=== PATIENT | male | born 1960 ===

== ENCOUNTER 2018-11-17 10:32 | Outpatient (REF) | payer BC, SELFPAY | END 2018-11-17 10:52 | LOC: LBN 10:32 | PROVIDERS: PCP Nurse Practitioner Family; Visit Provider Nurse Practitioner Family | DX: R35.0 Frequency of micturition (principal) | CPT/HCPCS: 87077; 87086; 87186 ==

== ENCOUNTER 2018-11-30 13:27 | Outpatient (REF) | payer BC, SELFPAY ==
[2018-11-30 16:38] LABS: Bilirubin Negative (Negative); Blood Trace-intact (Negative); Clarity Clear; Glucose Negative (Negative); Ketones Negative (Negative); Leukocyte Esterase Negative (Negative); Nitrite Negative (Negative); Specific Gravity 1.025 (1.005-1.025); Urobilinogen 0.2 EU/dL (Up TO 0.2); pH 5.5 (5-8)
[2018-11-30 16:56] LABS: Bacteria Negative HPF (Negative); C & S Indicated? C&S Done As Ordered; Casts Negative LPF (Negative); Crystals Negative HPF (Negative); Epithelial Cells Negative HPF (Negative); Mucus Negative (Negative); WBC 0-2 HPF (0-5)
== END 2018-11-30 13:47 ==
LOC: LBN 13:27
PROVIDERS: PCP Nurse Practitioner Family; Visit Provider Nurse Practitioner Family
DX: N39.0 Urinary tract infection, site not specified (principal); N40.0 Benign prostatic hyperplasia without lower urinary tract symptoms
CPT/HCPCS: 87077; 81003; 81015; 87086; 87186

== ENCOUNTER 2019-01-15 07:05 | Outpatient (CLI) | payer BC, SELFPAY ==
[2019-01-15 08:16] LABS: Anion Gap 9.7 mmol/L (3-11); BUN 22 mg/dL (7-18); CO2 29.3 mmol/L (21.0-32.0); CREATININE 0.94 mg/dL (0.70-1.30); Calcium 8.8 mg/dL (8.5-10.1); Calculated LDL 143 mg/dL; Chloride 105 mmol/L (98-107); Cholesterol 222 mg/dL (50-200); Glucose 103 mg/dL (70-100); HDL Cholesterol 63 mg/dL (40-60); Potassium 4.4 mmol/L (3.5-5.1); Sodium 144 mmol/L (136-145); Triglyceride 82 mg/dL (30-150)
[2019-01-16 11:09] LABS: PSA, Screening 0.9 ng/ml (0-4.5)
== END 2019-01-15 07:25 ==
PROVIDERS: PCP Nurse Practitioner Family; Visit Provider Nurse Practitioner Family
DX: E78.5 Hyperlipidemia, unspecified (principal); N40.0 Benign prostatic hyperplasia without lower urinary tract symptoms; R34 Anuria and oliguria; Z13.1 Encounter for screening for diabetes mellitus; Z12.5 Encounter for screening for malignant neoplasm of prostate
CPT/HCPCS: 36415; 80048; 80061; 83721; 84153

== ENCOUNTER 2019-02-27 15:13 | Outpatient (REF) | payer BC, SELFPAY ==
[2019-02-27 15:16] LABS: Bilirubin Negative (Negative); Blood Negative (Negative); Clarity Clear (Clear); Glucose Negative (Negative); Ketones Negative (Negative); Leukocyte Esterase Negative (Negative); Nitrite Negative (Negative); Specific Gravity 1.015 (1.005-1.025); Urobilinogen 0.2 EU/dL (Up TO 0.2)
== END 2019-02-27 15:33 ==
LOC: LBN 15:13
PROVIDERS: PCP Nurse Practitioner Family; Visit Provider Nurse Practitioner Gerontology
DX: R31.29 Other microscopic hematuria (principal)
CPT/HCPCS: 81003

== ENCOUNTER 2020-06-02 19:22 | Outpatient (REF) | payer BC, SELFPAY ==
[2020-06-02 15:41] LABS: Bilirubin Negative (Negative); Blood Trace-lysed (Negative); Clarity Clear (Clear); Glucose Negative (Negative); Ketones Negative (Negative); Leukocyte Esterase Negative (Negative); Nitrite Negative (Negative); Specific Gravity 1.015 (1.005-1.025); Urobilinogen 0.2 EU/dL (Up TO 0.2)
[2020-06-02 15:47] LABS: Bacteria Negative HPF (Negative); Casts Negative LPF (Negative); Crystals Negative HPF (Negative); Epithelial Cells Rare HPF (Negative); Mucus Negative (Negative); RBC 0-2 HPF (0-2); WBC 0-2 HPF (0-5)
[2020-06-02 15:48] LABS: C & S Indicated? No
== END 2020-06-02 19:42 ==
LOC: NCHCN 19:22
PROVIDERS: PCP Nurse Practitioner Family; Visit Provider Nurse Practitioner Gerontology
DX: R31.29 Other microscopic hematuria (principal)
CPT/HCPCS: 81003; 81015

== ENCOUNTER 2021-04-09 02:39 | Outpatient (CLI) | payer BC, SELFPAY ==
[2021-04-09 08:55] LABS: ALT 36 U/L (16-63); AST 22 U/L (15-37); Albumin 4.1 g/dL (3.4-5.0); Alkaline Phosphatase 52 U/L (46-116); Anion Gap 8.1 mmol/L (3-11); BUN 21 mg/dL (7-18); Bilirubin, Total 1.1 mg/dL (0.2-1.0); CO2 29.9 mmol/L (21.0-32.0); CREATININE 1.1 mg/dL (0.70-1.30); Calcium 9.1 mg/dL (8.5-10.1); Chloride 105 mmol/L (98-107); Glucose 96 mg/dL (74-106); Hemoglobin A1C 5.3 % (<5.7); Potassium 4.3 mmol/L (3.5-5.1); Sodium 143 mmol/L (136-145); Total Protein 6.8 g/dL (6.4-8.2)
[2021-04-09 18:08] LABS: Bilirubin, Direct 0.2 mg/dL (0.0-0.2)
[2021-04-10 10:53] LABS: Hepatitis C Ab w Rflx HCV PCR Negative (Negative)
[2021-04-14 17:01] LABS: Cholesterol 186 mg/dL (<200); HDL Cholesterol 63 mg/dL (40-60); Triglyceride 61 mg/dL (<150)
[2021-04-14 17:02] LABS: Calculated LDL 111 mg/dL (<100)
== END 2021-04-09 02:40 | disposition home or self-care (01) ==
PROVIDERS: PCP Nurse Practitioner Family; Visit Provider Nurse Practitioner Family
DX: R73.01 Impaired fasting glucose (principal); I10 Essential (primary) hypertension; E80.6 Other disorders of bilirubin metabolism; Z11.59 Encounter for screening for other viral diseases
CPT/HCPCS: 36415; 80053; 80061; 86803; 82248; 83036

== ENCOUNTER 2022-02-09 16:28 | Outpatient (REF) | payer BC, SELFPAY | END 2022-02-09 16:29 | disposition home or self-care (01) | LOC: LBN 16:28 | PROVIDERS: PCP Nurse Practitioner Gerontology; Visit Provider Nurse Practitioner Gerontology | DX: R31.9 Hematuria, unspecified (principal) | CPT/HCPCS: 87086 ==

== ENCOUNTER 2022-04-14 18:44 | Outpatient (REF) | payer BC, SELFPAY | END 2022-04-14 18:45 | disposition home or self-care (01) | LOC: LBN 18:44 | PROVIDERS: PCP Nurse Practitioner Family; Visit Provider Nurse Practitioner Gerontology | DX: N39.0 Urinary tract infection, site not specified (principal) | CPT/HCPCS: 87086 ==

== ENCOUNTER 2022-06-09 10:58 | Outpatient (REF) | payer BC, SELFPAY ==
[2022-06-09 11:18] LABS: Bilirubin Negative (Negative); Blood Trace-intact (Negative); Clarity Clear (Clear); Glucose Negative (Negative); Ketones Negative (Negative); Leukocyte Esterase Negative (Negative); Nitrite Negative (Negative); Specific Gravity 1.025 (1.005-1.025); Urobilinogen 0.2 EU/dL (Up TO 0.2)
[2022-06-09 11:36] LABS: Bacteria Negative HPF (Negative); C & S Indicated? No; Casts Negative LPF (Negative); Crystals Negative HPF (Negative); Epithelial Cells Rare HPF (Negative); Mucus Negative (Negative); WBC Negative HPF (0-5)
== END 2022-06-09 10:59 | disposition home or self-care (01) ==
LOC: LBN 10:58
PROVIDERS: PCP Nurse Practitioner Family; Visit Provider Nurse Practitioner Gerontology
DX: R31.29 Other microscopic hematuria (principal)
CPT/HCPCS: 81003; 81015

== ENCOUNTER 2022-07-08 06:13 | Day surgery (SDC) | payer BC, SELFPAY ==
[2022-07-08 06:36] VITALS: BP 129/77; PULSE 72; RESP 16; TEMP 37; O2SAT 98
--- NOTE | 2022-07-08 06:55 | W.ANESPRE ---
General Info Date of Service Date Performed: 07/08/22 Height: 5 ft 9 in Weight: 89 kg Body Mass Index (BMI): 29.0 Surgical Procedure: Operation Date: 07/08/22 07:40 Proposed Procedure Side Surgeon p Cysto/Retrograde/Possible Transurethral Resection Bladder Tumor Bilateral Enzo Newby MD Meds Allergies and Home Medications Allergies Allergy/AdvReac Type Severity Reaction Status Date / Time No Known Allergies Allergy Verified 07/08/22 06:36 Home Medication Medication Instructions Recorded atorvastatin 10 mg tablet 10 mg PO DAILY #90 tab-caps 08/26/21 lisinopril 20 mg tablet 20 mg PO DAILY #90 tab-caps 08/26/21 Current Visit Medications: Current Medications Generic Name Dose Route Start Last Admin Trade Name Freq PRN Reason Stop Dose Admin Ringer's Solution 1,000 mls @ 80 mls/hr 07/08/22 06:00 IV 08/06/22 23:59 INFUSION JAYE Cefazolin Sodium/Dextrose 2 gm in 50 mls @ 100 mls/hr 07/08/22 06:00 Ancef Duplex IVPB 07/08/22 16:00 PREOP JAYE IV Miscellaneous Supplies 1 each 07/08/22 06:00 Iv Access IV 08/06/22 23:59 DIRECTED JAYE Sodium Chloride 0 ml 07/08/22 06:00 Normal Saline Flush 10 Ml Syr IV 08/06/22 23:59 PRN PRN Sodium Chloride 0 ml 07/08/22 06:00 Normal Saline 10 Ml Vial IJ 08/06/22 23:59 DIRECTED PRN Sterile Water 0 ml 07/08/22 06:00 Water,Injection,Sterile 10 Ml Vial IJ 08/06/22 23:59 DIRECTED PRN PFSH Active Problems Active Problems: Problem Status Onset Code Incomplete bladder emptying R33.9 Immunization not carried out because of patient decision Z28.20 Alcohol consumption heavy Z78.9 BPH loc w urin obs/LUTS N40.1 IFG (impaired fasting glucose) ~12/2018 R73.01 Essential hypertension I10 Hyperlipidemia 08/18/15 E78.5 Medical History Medical History Tobacco use disorder QUIT ~1988 Tobacco Smoking/Tobacco Use Status: Former Tobacco Use Alcohol Alcohol Intake: current Alcohol intake frequency: 3 or more drinks per day Alcohol type: beer Counseling provided: provider counseling Details: 4-6 per day Substance Use Substance use: Never Substance use type: does not use Vital Signs and Lab Results Vital Signs Most Recent Vital Signs in EMR: Most Recent Vital Signs Temp Pulse Resp BP Pulse Ox 37 C 72 16 129/77 98 07/08/22 06:36 07/08/22 06:36 07/08/22 06:36 07/08/22 06:36 07/08/22 06:36 Lab Results Blood Type / Crossmatch: No Data to Display Complete Blood Count: No Data to Display Complete Metabolic Panel: No Data to Display Liver Function Panel: No Data to Display Coagulation Panel: No Data to Display Cardiac Panel: No Data to Display Arterial Blood Gas: No Data to Display Venous Blood Gas: No Data to Display Pancreas Panel: No Data to Display Thyroid Panel: No Data to Display Infectious Disease: No Data to Display Blood Cultures: No Data to Display Toxicology Panel: No Data to Display Anesthesia Assessment and Plan Anesthesia History Personal History: No History of General Anesthesia Family History: No Family History of Anesthesia Complications Exercise Tolerance Exercise Tolerance: Metabolic Equivalents>4 Pertinent Negatives Pertinent Negatives: No Symptoms of GERD Cardiac & Pulmonary Exam Cardiac Exam: Normal S1/S2 Heart Sounds Pulmonary Exam: Clear Bilateral Breath Sounds Implantable Cardiac Device Does patient have a Pacemaker or an ICD?: No Airway Exam Known Difficult Airway: No Mallampati Class: 3 Mouth Opening: Normal (> 3cm) Thyromental Distance: Greater than 3 cm Neck Range of Motion: Full ROM Neck Circumference: Normal Teeth Condition: Normal Dentition ASA Classification ASA Score: ASA 2 Emergency Case?: No NPO Status NPO Status: NPO Clears >2 hours, Solids >8 hours Anesthesia Plan Resuscitation Status: Full Code Anesthesia Technique: MAC Anesthesia Airway Planned: Natural Airway Monitors Used: Standard Monitors
[2022-07-08] MEDS: Lactated Ringers 1,000 ML 80 ML IV (07:00)
--- NOTE | 2022-07-08 07:00 | W.PM.HP.N ---
Date of service: 07/08/22 Time of Service: 07:00 Assessment and Plan Assessment and plan (1) Microscopic hematuria: Status: Acute Assessment and plan: We will plan to complete his hematuria work-up with a cystoscopy and retrograde pyelogram. We will be prepared to do a transurethral resection of bladder tumor should any abnormality be identified. History of Present Illness History of Present Illness Chief Complaint: Microscopic hematuria Narrative: This is a 62-year-old gentleman who has a history of lower urinary tract symptoms. He has been treated with medical therapy. As part of his evaluation, he was found to have microscopic hematuria. He has not had any gross hematuria. His evaluation to date includes a normal renal ultrasound. He presents for cystoscopy with bilateral retrograde pyelogram to complete his hematuria work-up. Review of Systems Constitutional Comments: No fevers or chills No vision change or dysphasia No diabetes or thyroid dysfunction No shortness of breath, cough or hemoptysis No chest pain or palpitations No nausea, vomiting, hepatitis, ulcers, jaundice, diarrhea or constipation No seizures, strokes or peripheral neuropathy No bleeding disorders or anemia No gout PFSH All Active Problems (Updated 07/08/22 @ 07:04 by Enzo Newby MD) Microscopic hematuria (Acute) Incomplete bladder emptying (Acute) Immunization not carried out because of patient decision (Acute) Patient declines all vaccinations except for Tdap Alcohol consumption heavy (Chronic) BPH loc w urin obs/LUTS (Chronic) IFG (impaired fasting glucose) (Chronic ~12/2018) Essential hypertension (Chronic) Hyperlipidemia (Chronic 08/18/15) 12/2018 labs: ACC/AHA 10-year ASCVD risk = ~10.6% --> started moderate intensity statin therapy; 04/2021 labs: good response Medical History Tobacco use disorder QUIT ~1988 Family History Mother , at age 55 Lung cancer Cancer Lung cancer (smoker) Father , at age 54. Colon cancer Colon cancer? Cancer Colon cancer? Sister Mental disorder Intellectual disability Brother , Lung complications? 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[employer]) Sexually active: Yes Current gender identity: male What type of physical activity do you participate in: walking and other Details: Active with work Frequency: daily Seatbelt use: always Drive intox or ride w/intox lease purchase driver: No Water heater temp set <120 deg: Yes Working smoke detector in home: Yes Fire extinguisher in home: Yes Carbon monox detector in home: Yes Firearms in home: Yes Firearms unloaded and locked: Yes Do you feel safe at home: Yes Do you feel safe in your relationship?: Yes Meds Allergies and Home Medications Allergies Allergy/AdvReac Type Severity Reaction Status Date / Time No Known Allergies Allergy Verified 07/08/22 06:36 Home Medications Medication Instructions Recorded Confirmed Type atorvastatin 10 mg tablet 10 mg PO DAILY #90 tab-caps 08/26/21 07/08/22 Rx lisinopril 20 mg tablet 20 mg PO DAILY #90 tab-caps 08/26/21 07/08/22 Rx Exam Const General: cooperative and comfortable Neck Neck: supple Resp Effort & Inspection: normal respiratory effort Auscultation: clear to auscultation bilaterally Cardio Rate: regular rate Rhythm: regular rhythm GI Palpation: soft and no masses Neuro General: patient alert, patient awake and patient oriented x3 Results Last Vital Signs Temp 37 C 07/08/22 06:36 Pulse 72 07/08/22 06:36 Resp 16 07/08/22 06:36 BP 129/77 07/08/22 06:36 Pulse Ox 98 07/08/22 06:36 Time Spent Time spent with Patient: <40 minutes Time was spent: counseling the patient
[2022-07-08 07:02] VITALS: BMI 29.0
[2022-07-08] MEDS: ceFAZolin 2 GM/50 ML BAG IVPB (07:26)
[2022-07-08] MEDS: Lidocaine 2% Jelly 6 ML SYR (07:38)
[2022-07-08] MEDS: Omnipaque 300 MG/ML 50 ML BTL (07:40)
--- NOTE | 2022-07-08 07:55 | DI.RAD_ITS ---
Exam(s) XR RETROGRADE IN OR EXAM: XR RETROGRADE IN OR CLINICAL HISTORY: Incomplete bladder emptying. TECHNIQUE: 2D digital imaging was performed. COMPARISON: No exams were available for comparison FINDINGS: Fluoroscopy provided during urology procedure. See procedure report for details. Radiation exposure index: stanley Welsh= 12.280mGY IMPRESSION: DATA REPOSITORY: RADIATION DOSE DELIVERED:
--- NOTE | 2022-07-08 07:59 | W.PM.DSUDISC ---
Date of service: 07/08/22 Time of Service: 07:59 Discharge Plan Disposition Patient Disposition: Home Condition: Stable Discharge Details Reason For Visit: microscopic hematuria Attending Provider: Enzo Newby Primary Care Provider: Emily Reyes Home Meds and New Rx's Prescriptions: No Action atorvastatin 10 mg tablet 10 mg PO DAILY Qty: 90 3RF lisinopril 20 mg tablet 20 mg PO DAILY Qty: 90 3RF Discharge Instructions Additional Instructions: expect some blood from urethral opening (I had to stretch the opening to pass the scope) followup 3 months for symptom check (sooner if urinary symptoms are getting worse) Activity:: Activity as Tolerated Shower/Bathe:: 24 hours Diet:: As Tolerated Discharge Orders Discharge Orders: Discharge Order (Routine); Ordered 07/08/22 Ordered By: Enzo Newby DS: Diagnosis Discharge Diagnosis (1) Microscopic hematuria: Status: Acute
[2022-07-08 08:05] VITALS: BP 104/72; PULSE 68; RESP 16; TEMP 36.5; O2SAT 97
--- NOTE | 2022-07-08 08:16 | W.ANESPOSTOP ---
Postoperative Evaluation Date, Time and Location Date Performed: 07/08/22 Time Performed: 08:16 Patient Location: Day Surgery Unit Vital Signs Most Recent Imported Vital Signs: Most Recent Vital Signs Temp Pulse Resp BP Pulse Ox 36.5 C 68 16 104/72 97 07/08/22 08:05 07/08/22 08:05 07/08/22 08:05 07/08/22 08:05 07/08/22 08:05 Pain Score Most Recent Pain Score: Most Recent Pain Score Pain Level 0 07/08/22 08:05 Assessment Mental Status: Awake (Alert & Oriented to Patient Baseline) Airway and Respiratory Function: Patent airway with normal (patient baseline) respiratory exam Cardiovascular Function: Hemodynamically Stable Hydration Status: Adequately Hydrated Nausea & Vomiting: No Nausea or Vomiting Pain: Pt. Denies Any Pain Peripheral Nerve Block: Patient did not receive a nerve block
[2022-07-08] MEDS: Phenazopyridine 200 MG TAB PO (08:26)
[2022-07-08 08:27] VITALS: BP 126/92; PULSE 65; RESP 16; TEMP 36.3; O2SAT 97
--- NOTE | 2022-07-08 09:04 | ROE_ITS ---
Date of service: 07/08/22 Time of Service: 08:00 Operative Note Operative Note DATE OF PROCEDURE: 07/08/22 PRE-OP DIAGNOSIS: Microscopic hematuria Meatal stenosis PROCEDURE: Urethral dilation, cystoscopy with bilateral retrograde pyelogram SURGEON: Enzo Newby ANESTHESIA TYPE: General:No Airway Refer to Anesthesia Record ESTIMATED BLOOD LOSS: 10 PATHOLOGY: none sent COMPLICATIONS: None Patient was transported to: same day Patient's condition: stable Indications: This is a 62-year-old gentleman who has a history of lower urinary tract symptom s. He has a finding of microscopic hematuria with 3-5 red blood cells found per high-power field He was evaluated with a renal ultrasound. The right kidney appeared normal. 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 He presents now for cystoscopy with bilateral retrograde pyelogram and possible transurethral resection of any visible a bnormality. 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 He was given preoperative antibiotics. After successful induction of general anesthesia without intubation, he was placed in the dorsal lithotomy position. His genitalia was prepped and draped. 2% Xylocaine jelly was instilled into the urethral meatus Initially, I was unable to pass the 22 Austrian cystoscope sheath through the urethral meatus due to meatal stenosis. I then dilated the area using Eric sounds. We dilated from 16 Austrian up to 24 Austrian. The scope could then be passed through the narrowed urethral meatus. The remainder the urethra was inspected with a 30 degree lens. The bulbar and membranous urethra appeared normal with no strictures. The prostatic urethra showed no papillary or nodular lesions on the mucosa. The bladder neck was entered and the bladder mucosa was inspected. The bladder was moderately trabeculated with multiple diverticuli present. No papillary or nodular lesions were seen on the bladder mucosa. The right ureteral orifice appeared normal. No blood was seen coming from the right side. The right orifice was cannulated with a 5 Austrian access catheter and a retrograde film was obtained by injecting Omnipaque through the access catheter under fluoroscopic guidance. The right ureter and collecting system appeared normal. The right side drained promptly on a 5-minute drainage film. On the left side there were 2 distinct ureters present. Neither ureter had blood draining from the orifice. The more medially located orifice was cannulated with a 5 Austrian access catheter. A retrograde film was obtained by injecting Omnipaque under fluoroscopic guidance. This ureter drained the upper pole segment of the kidney. The upper pole ureter and collecting system appeared normal. The upper pole drained promptly on a 5-minute drainage film The more laterally oriented orifice was then cannulated with a 5 Austrian access catheter and a retrograde film was obtained by injecting Omnipaque under fluoroscopic guidance. This ureter was connected to the lower pole segment. The entire ureter and collecting system was dilated with no specific narrowing of the ureter. The lower pole calyx drained much more slowly than the upper pole calyx The bladder was reinspected with a 70 degree lens. Again, no papillary or nodular lesions were seen. On withdrawing the cystoscope, we used a 30 degree lens to again inspect the prostatic mucosa. No abnormalities were found. The prostate was not overly enlarged although there was some lateral lobe hypertrophy present The scope was removed. He tolerated the procedure well with no complications. He was taken back to [facility] in stable condition. No treatment/intervention is needed for the left lower pole segment unless the patient were to have flank pain or pyelonephritis. It will be interesting to see if any of his LUTS improve with dilation of his meatal stenosis.
== END 2022-07-08 08:43 | disposition home or self-care (01) ==
PROVIDERS: PCP Nurse Practitioner Family; Visit Provider Urology
PROC: 0TBB8ZZ Excision of Bladder, Via Natural or Artificial Opening Endoscopic (ICD-10-PCS; CPT 52005; principal; 2022-07-08 07:30)
DX: N35.911 Unspecified urethral stricture, male, meatal (principal); Q62.5 Duplication of ureter; R31.29 Other microscopic hematuria; N32.89 Other specified disorders of bladder; N13.30 Unspecified hydronephrosis
CPT/HCPCS: 52005; 74420; J0690; J2704; Q9967

== ENCOUNTER 2023-08-23 07:59 | Outpatient (CLI) | payer BC, SELFPAY ==
[2023-08-23 07:55] LABS: ALT 31 U/L (16-63); AST 19 U/L (15-37); Alkaline Phosphatase 61 U/L (46-116); Anion Gap 5.7 mmol/L (3-11); BUN 17 mg/dL (7-18); Bilirubin, Total 1.1 mg/dL (0.2-1.0); CO2 32.3 mmol/L (21.0-32.0); CREATININE 1.2 mg/dL (0.70-1.30); Calcium 9.4 mg/dL (8.5-10.1); Calculated LDL 124 mg/dL (<100); Chloride 103 mmol/L (98-107); Cholesterol 195 mg/dL (<200); Estimated GFR 67.11 (mL/min/1.73m2); Glucose 101 mg/dL (74-106); HDL Cholesterol 59 mg/dL (40-60); Potassium 4.7 mmol/L (3.5-5.1); Sodium 141 mmol/L (136-145); Total Protein 6.9 g/dL (6.4-8.2); Triglyceride 60 mg/dL (<150)
[2023-08-23 08:28] LABS: Hemoglobin A1C 5.3 % (<5.7)
== END 2023-08-23 08:00 | disposition home or self-care (01) ==
LOC: LBO 08:00
PROVIDERS: PCP Nurse Practitioner Family; Referring Provider Urology; Visit Provider Urology
DX: N40.1 Benign prostatic hyperplasia with lower urinary tract symptoms (principal); E78.5 Hyperlipidemia, unspecified; I10 Essential (primary) hypertension; Z78.9 Other specified health status; R73.01 Impaired fasting glucose
CPT/HCPCS: 36415; 80053; 80061; 83036; 84153

== ENCOUNTER 2024-05-14 15:47 | Outpatient (CLI) | payer BC, SELFPAY ==
--- NOTE | 2024-05-14 15:45 | DI.RAD_ITS ---
Exam(s) XR CHEST 2V PA LATERAL EXAM: XR CHEST 2V PA LATERAL CLINICAL HISTORY: R05.9 Cough 5-6 weeks. TECHNIQUE: 2D digital imaging was performed. COMPARISON: No exams were available for comparison FINDINGS: 2 views: Heart size is normal. The mediastinum is not widened. Lungs are clear. No infiltrates nor pleural effusions. IMPRESSION: No acute pulmonary findings. DATA REPOSITORY: RADIATION DOSE DELIVERED:
== END 2024-05-14 16:07 ==
LOC: DI 15:48
PROVIDERS: PCP Nurse Practitioner; Visit Provider Nurse Practitioner
DX: R05.9 Cough, unspecified (principal)
CPT/HCPCS: 71046

== ENCOUNTER 2024-07-02 12:36 | Outpatient (REF) | payer BC, SELFPAY ==
--- NOTE | 2024-07-02 12:17 | SKI_PTH ---
PATIENT: Onesimo Peña LOC: [facility] U#:[id number] AGE/SX: 64/M ROOM: RE07/02/[address]: Glen Maciel : 1960 BED: DIS: 07/02/2024 SPEC #: [id number] RECD: 07/02/24 16:59 STATUS: NADIA REBrando #: [id number] CHRISTOPHER: 07/02/24 12:[address]: Glen Maciel DEPT: Surgical Specimen RECD BY: Dolores Castillo ENTERED: 07/02/24 17:00 SP TYPE: ROCAEL SIDHU DR: Sulma Avila APRN Tissues: 1 - SKIN BIOPSY(SHAVE/PUNCH) Procedures: SKIN LEVEL 4 Comments: [id number]
== END 2024-07-02 12:37 | disposition home or self-care (01) ==
LOC: LBN 12:36
PROVIDERS: PCP Nurse Practitioner; Visit Provider Student in an Organized Health Care Education/Training Program
DX: C44.612 Basal cell carcinoma of skin of right upper limb, including shoulder (principal)
CPT/HCPCS: 88305

== ENCOUNTER 2024-11-05 12:47 | Outpatient (REF) | payer BC, SELFPAY ==
--- NOTE | 2024-11-05 12:50 | SKI_PTH ---
PATIENT: Onesimo Peña LOC: [facility] U#:[id number] AGE/SX: 64/M ROOM: RE11/05/[address]: Glen Maciel : 1960 BED: DIS: 11/05/2024 SPEC #: [id number] RECD: 11/05/24 18:01 STATUS: NADIA STEVENS #: [id number] CHRISTOPHER: 11/05/24 12:[address]: Glen Maciel DEPT: Surgical Specimen RECD BY: Dolores Castillo ENTERED: 11/05/24 18:02 SP TYPE: ROCAEL SIDHU DR: Sulma Avila APRN Tissues: 1 - SKIN BIOPSY(SHAVE/PUNCH) 2 - SKIN BIOPSY(SHAVE/PUNCH) Procedures: SKIN LEVEL 4 Comments: [id number]
== END 2024-11-05 12:48 | disposition home or self-care (01) ==
LOC: LBN 12:47
PROVIDERS: PCP Nurse Practitioner; Referring Provider Student in an Organized Health Care Education/Training Program; Visit Provider Student in an Organized Health Care Education/Training Program
DX: C44.319 Basal cell carcinoma of skin of other parts of face (principal); C44.612 Basal cell carcinoma of skin of right upper limb, including shoulder
CPT/HCPCS: 88305

== ENCOUNTER 2025-05-28 08:25 | Outpatient (CLI) | payer BC, SELFPAY ==
--- NOTE | 2025-05-28 08:15 | RT.EKG_ITS ---
APPROVED REPORT Exam: Resting ECG Reason for Exam: Chest pain during hypoxia Patient Location: O HR:90 bpm ECG Measurements Heart Rate 90 AXIS ND 145 P 44 QRSd 93 QRS -66 QT 358 T -9 QTc 438 Conclusion Sinus rhythm...normal P axis, V-rate 50- 99 Left anterior fascicular block...axis(240,-40), init forces inf Abnormal T, consider ischemia, anterior leads...T <-0.20mV, V2-V4
== END 2025-05-28 08:26 | disposition home or self-care (01) ==
PROVIDERS: PCP Nurse Practitioner
DX: R07.9 Chest pain, unspecified (principal); R59.0 Localized enlarged lymph nodes
CPT/HCPCS: 93010

== ENCOUNTER 2025-05-28 10:35 | Outpatient (CLI) | payer BC, SELFPAY ==
[2025-05-28 09:09] LABS: Abs Immature Grans 0.03 10^3/uL (0.0-0.06); HCT 37.9 % (40.0-50.0); HGB 12.5 g/dL (13.5-17.5); MCH 31.8 pg (27.0-33.0); MCHC 33.0 % (32.0-36.0); MCV 96 fL (80-95); MPV 9.4 fL (8.0-11.0); Platelet Count 115 10^3/uL (130-400); RBC 3.93 10^6/uL (4.36-5.78); RDW 14.5 % (11.8-14.1); RDW-SD 51.0 fL; WBC 20.26 10^3/uL (4.4-10.8)
[2025-05-28 09:11] LABS: ESR 4 mm/hr (0-20)
[2025-05-28 09:43] LABS: C-Reactive Protein 14.10 mg/dL (<=0.50)
[2025-05-28 09:44] LABS: ALT 12 U/L (10-49); AST 15 U/L (<34); Albumin 4.4 g/dL (3.2-5.0); Alkaline Phosphatase 77 U/L (46-116); Anion Gap 8.1 mmol/L (3-11); BUN 23 mg/dL (9-23); Bilirubin, Total 1.4 mg/dL (0.2-1.2); CO2 26.9 mmol/L (20.0-31.0); Calcium 9.0 mg/dL (8.3-10.6); Chloride 105 mmol/L (98-107); Cholesterol 139 mg/dL (<200); Glucose 121 mg/dL (74-106); HDL Cholesterol 34 mg/dL (>40); Potassium 4.4 mmol/L (3.5-5.1); Sodium 140 mmol/L (136-145); Total Protein 6.6 g/dL (5.7-8.2)
[2025-05-28 10:07] LABS: RBC Morphology Normal
[2025-05-28 18:54] LABS: PSA, Screening 0.8 ng/mL (<=4.5)
== END 2025-05-28 10:36 | disposition home or self-care (01) ==
LOC: LBO 10:36
PROVIDERS: PCP Nurse Practitioner
DX: Z00.00 Encounter for general adult medical examination without abnormal findings (principal); R59.0 Localized enlarged lymph nodes; R06.02 Shortness of breath
CPT/HCPCS: 36415; 80053; 80061; 84153; 85652; 83880; 85025; 85379; 86140

== ENCOUNTER 2025-05-28 14:06 | Emergency (ER) | payer BC, SELFPAY ==
[2025-05-28] VITALS (34 sets, daily range): BP systolic 114–178; BP diastolic 67–95; PULSE 95–102; RESP 18–32; TEMP 36.6–36.9; O2SAT 91–98
--- NOTE | 2025-05-28 14:23 | ED.GENADUL_ITS ---
Discharge Plan Disposition Patient Disposition: Transfer-Acute Inpatient Care Specific Acute Inpt Facility: [facility] Discharge Details Clinical Impression: Pulmonary embolism, Abdominal tumor, Axillary adenopathy, Leukocytosis Primary Care Provider: Sulma Avila ED Provider: hCidi Kamara Home Meds and New Rx's Prescriptions: No Action atorvastatin 10 mg tablet 10 mg PO DAILY Qty: 90 3RF lisinopril 20 mg tablet 20 mg PO DAILY Qty: 90 3RF sildenafil 100 mg tablet 100 mg PO DAILY PRN (Reason: sexual activity) Qty: 10 12RF Rx Instructions: administer 30 minutes to 4 hours before activity albuterol sulfate [Ventolin HFA] 90 mcg/actuation HFA aerosol inhaler 2 puff inhalation Q6H PRN (Reason: shortness of breath or wheezing) Qty: 8.5 0RF Rx Instructions: 05/28/2025:PLease fill with what insurance will cover. Generic or Brand. HPI General Date/Time Provider Initiated Documentation: 05/28/25 14:07 . HPI Narrative: MDM/Narrative: 65-year-old presents for abnormal CT scan as an outpatient. Vital signs notable for tachycardia and hypertension. Physical exam notable for significant bilateral axillary adenopathy, exam otherwise unremarkable. Review of outpatient CT scan from earlier today however shows multiple significant pathologies. Most emergent there is bilateral pulmonary embolism without evidence of right heart strain, will treat with IV heparin bolus and infusion, and recommend admission for further management. Secondly there is a large intra-abdominal tumor, suspected to be consistent with lymphoma by the radiologist, in addition there is also filling defects within both renal parenchyma concerning for possible vascular infiltration and renal ischemia. As such, we will obtain screening labs including CMP, liver function, patient will likely need endovascular specialist with the apparent strain/renal ischemia. ED course: Labs are notable for leukocytosis, however normal renal function and liver function. BNP is elevated however troponin is baseline. Case discussed with transfer center for [facility] at 1542, pending their cardiology team to call back to determine disposition. [address] Mosley (Cardiology - [facility]) who recommends transfer to [facility] landing zone [place] for anticipated endovascular intervention of PEs tomorrow. He would also lovenox 1 mg/kg SQ BID, 1702 Case discussed with transfer center who clears patient for transport to the Landing zone and patient will be accepted by Dr. Engel (Cardiology - [facility]). Disposition: Transfer to [facility] HPI: 65-year-old male past medical history hypertension, presents for evaluation of abnormal outpatient CT. Patient does endorse that for the past 4 weeks he is having worsening dyspnea on exertion noting that he is not been able to go to work for the past 2 to 3 weeks at a [employer]. He has been unable to keep up with the labor, and notes that walking up stairs makes him significantly short of breath. Today saw his outpatient provider who ordered a CAT scan due to findings of bilateral axillary lymphadenopathy. Patient was advised to come emergency department shortly after obtaining the CAT scan due to the reading radiologist concern for life-threatening processes as noted below. At rest currently patient denies any significant complaints including chest pain, shortness of breath abdominal pain vomiting constipation. ROS: Negative besides as mentioned above Exam: Gen: A&O NAD HEENT: NCAT, EOMI, not icteric. External ears normal. No rhinorrhea. Moist mucous membranes. Neck: Supple, full range of motion, no observable masses, No meningeal sign. Lungs: No Respiratory distress. CV: Tachycardia, no edema. Lymph: Bilateral palpable axillary lymphadenopathy, more significant on the left side Abdomen: Soft, nondistended, No rebound tenderness. MSK: No joint swelling, no redness. Skin: No rashes, petechiae, lesions. Normal color per patient. Neuro: Normal Gait, Grossly intact. Psych: Appropriate for situation. Rhythm: NSR9 Rate:98 [place]: Normal axis Intervals: Normal intervals Other findings: No acute ST segment changes to suggest acute ischemia. T wave inversions in leads II, 3, aVF, V2 through V4 Labs: I have 154 and 75 heart rate 101 yes he is on room air and there is there is still the most recent vitals he had I just like passing his heart rate was like 98 but his respiratory rate is now hovering between 25-25 2528 with respiratory rate and O2 sat is still 96% on room air creatinine look fine right yes yes CMP totally normal except minimally elevated bilirubin Radiology: Accession No. : [id number] Creator : COLIN BAUTISTA Dictator : COLIN BAUTISTA Firmware Manager : Evening Anchor : COLIN BAUTISTA Approver2 : Report Date : 05/28/2025 13:54:41 Exam(s) CT CHEST/ABD/PEL W EXAM: CT CHEST/ABD/PEL W CLINICAL HISTORY: Assess for malignancy, altered pathology,pe,sob,. TECHNIQUE: Imaging Protocol: Axial computed tomography images with coronal and sagittal reformatted images were created and reviewed. Computer aided detection (CAD) was utilized. CONTRAST MATERIAL: Intravenous: Omnipaque 350 Contrast volume:100 ml Oral: yes / COMPARISON: US US RENAL from 06/07/2022 CR XR CHEST 2V PA LATERAL from 05/14/2024 FINDINGS: CHEST: Pulmonary parenchyma: Ground-glass opacity noted at left lung apex as well as anterior left upper lobe. Right basilar focal atelectasis. No consolidation. No dominant measurable mass. Tracheobronchial tree: No bronchiectasis. No mucous plugging.No bronchial wall thickening. Pleura: No effusion or pneumothorax. Mediastinum: Multiple enlarged lymph nodes in the superior mediastinum, AP window, right paratracheal and subcarinal regions as well as lower neck. The nodes appear conglomerated. The subcarinal adenopathy measures 6.3 cm transverse. There markedly enlarged bilateral axillary lymph nodes which also appear conglomerated. Lymph nodes extend down the lateral aspect of the chest. approximate measurements on the right are 16 cm in length by 5.7 cm transverse. Approximate measurements on the left 16.5 by 4.2 cm. Pulmonary arteries: No bilateral emboli involving both main pulmonary arteries. Extension into the left upper and lower lobe branches. Extension into right upper lobe branches. Evidence of right heart strain. Cardiovascular: The heart size is normal. There is bowing of the interventricular septum some enlargement of the right ventral could consistent with right heart strain. No pericardial effusion. There is dilatation of the ascending aorta to 4.4 cm. Mild calcification at the arch. Bones: Unremarkable for age. No lytic or blastic lesions. No compression fractures. Soft tissues: Unremarkable. ABDOMEN and PELVIS: Liver: Normal density. Cyst in the left lobe. No suspicious mass. Gallbladder and biliary tract: No evidence of stones or wall thickening. No biliary dilatation. Pancreas: Partially obscured by surrounding adenopathy. Normal density, no abnormal calcifications or inflammatory process. Spleen: Normal appearance but enlarged to 16 cm in length. Kidneys: The renal arteries and veins are attenuated by surrounding adenopathy. There is patchy renal perfusion which could be secondary to ischemia. There is mild dilatation of the renal pelves which could be secondary to mild ureteral compression by the adenopathy. Normal size, contour and axis. No radiodense stones. No suspicious masses seen. Adrenal glands: No masses seen. Aorta: Abdominal portion non-dilated. Lymph nodes: Extensive adenopathy in the retroperitoneum extending from the level of the diaphragm to the level of the low pelvis. The aorta and branch vessels are and circled. There is some attenuation of the renal arteries and veins as well as the inferior vena cava. Multiple enlarged mesenteric lymph nodes are also present. Abnormally enlarged groin lymph nodes are present. Soft tissues: Unremarkable. Bladder: Unremarkable compressed laterally by large pelvic sidewall lymph nodes. Bowel: No obstruction or bowel wall thickening. There is diverticulosis of the descending and sigmoid colon. The appendix is normal. Peritoneal cavity: Small amount of fluid medial to the spleen. No mesenteric inflammatory response. No free air. Bones: Unremarkable for age. Reproductive organs: The prostate is enlarged. There is a right hydrocele. The left testicle is not in fully included in the field of few. IMPRESSION: Large bilateral pulmonary emboli causing right heart strain. Extensive adenopathy in the bilateral axilla, retroperitoneum, mesentery and pelvis. The findings are suspicious for lymphoma. There is attenuation of the renal vasculature and patchy renal for perfusion consistent with ischemia. RADIATION DOSE DELIVERED: Total DLP DATA REPOSITORY: All CT scans at this facility are submitted to the National Radiology Data Registry (NRDR) Dose Index Registry (DIR) with the [employer] (ACR). RADIATION OPTIMIZATION: All CT scans at this facility use at least one of these dose optimization techniques: automated exposure control; mA and/or kV adjustment per patient size (includes targeted exams where dose is matched to clinical indication); or iterative reconstruction. Related Data Home Medications ?Medication ?Instructions ?Recorded ?Confirmed atorvastatin 10 mg tablet 10 mg PO DAILY #90 tab-caps 04/30/24 05/28/25 lisinopril 20 mg tablet 20 mg PO DAILY #90 tab-caps 04/30/24 05/28/25 sildenafil 100 mg tablet 100 mg PO DAILY PRN sexual 1 08/02/23 05/28/25 activity #10 tabs albuterol sulfate 90 mcg/actuation 2 puff inhalation Q 6H PRN 05/28/25 05/28/25 aerosol inhaler (Ventolin HFA) shortness of breath or wheezing #8.5 grams Previous Rx's ?Medication ?Instructions ?Recorded atorvastatin 10 mg tablet 10 mg PO DAILY #90 tab-caps 04/30/24 lisinopril 20 mg tablet 20 mg PO DAILY #90 tab-caps 04/30/24 sildenafil 100 mg tablet 100 mg PO DAILY PRN sexual 1 08/02/23 activity #10 tabs albuterol sulfate 90 mcg/actuation 2 puff inhalation Q 6H PRN 05/28/25 aerosol inhaler (Ventolin HFA) shortness of breath or wheezing #8.5 grams Allergies Allergy/AdvReac Type Severity Reaction Status Date / Time No Known Allergies Allergy Verified 05/28/25 14:15 General Stated Complaint: SOB WALLACE: 3 Course Vital Signs Vital signs: Vital Signs Temperature 36.6 C 05/28/25 14:13 Pulse 101 H 05/28/25 14:13 Respiratory Rate 20 05/28/25 14:13 Blood Pressure 154/75 H 05/28/25 14:13 Pulse Oximetry 96 05/28/25 14:13 Temperature 36.6 C 05/28/25 14:15 Pulse 101 H 05/28/25 14:15 Respiratory Rate 20 05/28/25 14:15 Blood Pressure 154/75 H 05/28/25 14:15 Pulse Oximetry 96 05/28/25 14:15 Pain Level 0 05/28/25 14:15 Critical Care Time Critical Care Time Attestation: Upon my evaluation, this patient had a high probability of imminent or life- threatening deterioration due to pulmonary embolisms with right heart strain, which required my direct attention, intervention, and personal management. I have personally provided 30 minutes of critical care time exclusive of time spent on separately billable procedures. Time includes review of laboratory data, radiology results, discussion with consultants, and monitoring for po tential decompensation. Interventions were performed as documented above, including monitoring of critical vital signs, ordering critical medications from bedside, and re-assessing effectiveness, repeating critical exam findings, and reviewing patients' chart. PFSH All Active Problems (Updated 05/28/25 @ 17:07 by Chidi Kamara MD) Leukocytosis (Acute) Axillary adenopathy (Acute) Abdominal tumor (Acute) Pulmonary embolism (Chronic) Squamous cell skin cancer (Acute) Basal cell carcinoma (Acute) 10/2024-R arm and R face excisions by Dr Maciel Microscopic hematuria (Acute) Incomplete bladder emptying (Acute) Immunization not carried out because of patient decision (Acute) Patient declines all vaccinations except for Tdap Alcohol consumption heavy (Chronic) BPH loc w urin obs/LUTS (Chronic) IFG (impaired fasting glucose) (Chronic ~12/2018) Essential hypertension (Chronic) Hyperlipidemia (Chronic 08/18/15) 12/2018 labs: ACC/AHA 10-year ASCVD risk = ~10.6% --> started moderate intensity statin therapy; 04/2021 labs: good response Medical History (Updated 05/28/25 @ 17:07 by Chidi Kamara MD) Meatal stenosis Tobacco use disorder QUIT ~1988 Surgical History (Updated 07/11/24 @ 12:59 by Savana Bella RN) H/O local excision of skin lesion 07/02/24- Skin of Forearm, Right, Excision; Glen Maciel MD; Squamos cell carcinoma, well- differentiated, completely excised. Family History Mother , at age 55 Lung cancer Cancer Lung cancer (smoker) Father , at age 54. Colon cancer Colon cancer? Cancer Colon cancer? Sister Mental disorder Intellectual disability Brother , Lung complications? Alcohol use disorder Other Substance use disorder Social History (Updated 04/30/24 @ 07:58 by Carey Preston LPN) Smoking/Tobacco Use Status: Former Tobacco Use Quit Date: 06/20/88 Tobacco: How many years used: 16 Smoking risk assessment performed?: Yes Alcohol Intake: current Alcohol Intake frequency: a few times a week Alcohol type: beer Counseling given: Yes Counseling provided: provider counseling Details: 4-6 per day Drug use: Never Substance use type: does not use Caregiver/Support person: No Household members: spouse and children Housing: house Number of Children: 8 number of grandchildren: 16 Communication Needs: None Education Level: high school 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[employer]) Sexually active: Yes Current gender identity: male What is your relationship status?: How often do you talk on the phone with friends or family?: three or more times per week How often do you get together with friends or relatives?: three or more times per week Panel score (0-1 are the most socially isolated patients): 2 What type of physical activity do you participate in: walking and other Details: Active with work Duration: > 90 minutes/day Frequency: daily Seatbelt use: always Drive intox or ride w/intox team truck driver: No Water heater temp set <120 deg: Yes Working smoke detector in home: Yes Fire extinguisher in home: Yes Carbon monox detector in home: Yes Firearms in home: Yes Firearms unloaded and locked: Yes Do you feel safe at home: Yes Do you feel safe in your relationship?: Yes
--- NOTE | 2025-05-28 14:30 | RT.EKG_ITS ---
APPROVED REPORT Exam: Resting ECG Reason for Exam: Dyspnea Patient Location: E HR:98 bpm ECG Measurements Heart Rate 98 AXIS MO 147 P 45 QRSd 89 QRS -81 QT 363 T 1 QTc 464 Conclusion Sinus rhythm, rate 98 No interval abnormalities T wave inversions III, V1-V4, unchanged from earlier today No STEMI
[2025-05-28 15:08] LABS: BE (Venous) -1 mmol/L (-2-3); HCO3 (Venous) 24 mmol/L (23-28); O2 Sat (Venous) 73 %; TCO2 (Venous) 22 mmol/L (24-29); pCO2 (Venous) 39 mmHg (41-51); pO2 (Venous) 42 mmHg
[2025-05-28 15:11] LABS: Abs Immature Grans 0.04 10^3/uL (0.0-0.06); HCT 36.5 % (40.0-50.0); HGB 12.2 g/dL (13.5-17.5); MCH 31.9 pg (27.0-33.0); MCHC 33.4 % (32.0-36.0); MCV 95 fL (80-95); MPV 10.3 fL (8.0-11.0); Platelet Count 129 10^3/uL (130-400); RBC 3.83 10^6/uL (4.36-5.78); RDW 14.5 % (11.8-14.1); RDW-SD 50.2 fL; WBC 19.28 10^3/uL (4.4-10.8)
[2025-05-28] MEDS: Normal Saline 1,000 ML 1000 ML IV (15:18)
[2025-05-28] MEDS: Heparin in 0.45% NaCl 25,000 UNIT/250 ML BAG 13.86 UNIT IVINF (15:21)
[2025-05-28 15:24] LABS: INR 1.1 (0.9-1.1); PTT Activated 29.9 sec (20.6-30.2); Prothrombin Time 11.0 sec (9.1-11.1)
[2025-05-28 15:31] LABS: Immature Grans % 0.0 %; RBC Morphology Normal
[2025-05-28 15:36] LABS: Magnesium 2.1 mg/dL (1.6-2.6); Troponin I 15 ng/L (<54)
[2025-05-28 15:37] LABS: Lipase 21 U/L (<53)
[2025-05-28 15:39] LABS: ALT 12 U/L (10-49); AST 15 U/L (<34); Albumin 4.5 g/dL (3.2-5.0); Alkaline Phosphatase 78 U/L (46-116); Anion Gap 11.5 mmol/L (3-11); BUN 22 mg/dL (9-23); Bilirubin, Total 1.3 mg/dL (0.2-1.2); CO2 23.5 mmol/L (20.0-31.0); Calcium 9.3 mg/dL (8.3-10.6); Chloride 102 mmol/L (98-107); Glucose 96 mg/dL (74-106); Potassium 4.2 mmol/L (3.5-5.1); Sodium 137 mmol/L (136-145); Total Protein 6.9 g/dL (5.7-8.2)
[2025-05-28 16:03] LABS: Troponin I 15 ng/L (<54)
[2025-05-28] MEDS: Enoxaparin 80 MG/0.8 ML SYR 77 MG SC (17:31)
== END 2025-05-28 17:58 | disposition short-term general hospital (02) ==
PROVIDERS: Emergency Provider General Practice; PCP Nurse Practitioner
DX: I26.99 Other pulmonary embolism without acute cor pulmonale (principal); D49.89 Neoplasm of unspecified behavior of other specified sites; R59.0 Localized enlarged lymph nodes; D72.829 Elevated white blood cell count, unspecified
CPT/HCPCS: 36415; 80053; 82805; 83690; 86850; 86900; 86901; 93005; 96365; 96366; 99291; 83605; 83735; 83880; 84484; 85025; 85610; 85730; 93010; J1644; J1650